=== PATIENT | male | born 1940 | race Caucasian/White ===

== ENCOUNTER 2017-01-06 19:51 | Inpatient (IN) | payer OTHER ==
[~2017-01-06] VITALS: Ht 167.6 cm; Wt 89.4 kg
--- NOTE | ~2017-01-06 | D ---
[facility] [place] [address] DISCHARGE SUMMARY Name: KRISTIE CARDOZA Room #: 305-P [facility] IN M.R.#: [id number] Admission: 01/06/17 Attend Phys: Vania Campos MD Discharge: 01/08/17 Date of : 42 Report #: [id number] THIS REPORT FOR: //name// CC: OWEN Campos DATE OF SERVICE: 01/08/2017 PRIMARY DOCTOR: Owen Garber MD DISCHARGE DIAGNOSES: 1. Elevated troponin. 2. Type 2 diabetes, uncontrolled. 3. Abdominal pain secondary to constipation. 4. Chronic diastolic congestive heart failure. 5. Hypertension. 6. Acute kidney injury. 7. History of atrial fibrillation, on chronic anticoagulation. 8. Obstructive sleep apnea, on CPAP. 9. Chronic obstructive pulmonary disease. 10. Hypothyroidism. 11. History of deep venous thrombosis with inferior vena cava filter. 12. Coronary artery disease with prior stents. 13. Permanent pacemaker. 14. Dyslipidemia. CONSULTS: Cardiology, Dr. Seo. Wound care and endocrinology, Dr. Fagan. PROCEDURES: He had a stress test that was negative for ischemia. HOSPITAL COURSE: The patient is a 76-year-old male with multiple medical problems including diabetes, coronary artery disease, atrial fibrillation, hypertension, currently residing at an assisted living facility, presented to the ER secondary to abdominal pain. Please see details of admission dictated by on 01/06/2017. Workup in the ER revealed the patient had low sodium and elevated troponin. He was admitted and cardiac workup was initiated. He indicates that his abdominal pain is unrelated to his diabetes and his sugars were markedly elevated in the ER. Additionally, he had evidence of some volume depletion as his sodium was low and his BUN and creatinine were elevated. He was started on some normal saline and cardiology was consulted. He underwent a stress test that was negative for ischemia. He was cleared for discharge by cardiology. Subsequent to that, his abdominal symptoms have resolved as well. He denied any complaints and was anxious to go home. DISCHARGE DISPOSITION: To home with home health. [address] [address] DISCHARGE SUMMARY Name: KRISTIE CARDOZA Room #: 305-P [facility] IN M.R.#: [id number] Admission: 01/06/17 Attend Phys: Vania Campos MD Discharge: 01/08/17 Date of : 42 Report #: [id number] DISCHARGE PHYSICAL EXAMINATION: VITAL SIGNS: Temperature 98, pulse 80, blood pressure 136/78, O2 sat is 96% on room air. GENERAL: He is awake, alert, answering questions appropriately, in no acute respiratory distress. HEENT: Normocephalic, atraumatic. NECK: Supple. CARDIOVASCULAR: Regular rate and rhythm. No murmurs. LUNGS: Clear to auscultation bilaterally. No crackles or wheeze. ABDOMEN: Soft, no distention or tenderness. EXTREMITIES: No edema. DISCHARGE MEDICATIONS: Aspirin 81 daily, Casodex 50 daily, vitamin D 50,000 units weekly, Lasix 40 daily, Proscar 2.5 mg daily, Neurontin 600 t.i.d., glucosamine 500 t.i.d., guaifenesin 600 daily, Toujeo 15 units at bedtime and 5 units a.c., Imdur 30 mg daily, Synthroid 100 mcg daily, Namenda 10 daily, metoprolol XL 50 daily, multivitamin daily, nitroglycerin p.r.n., OxyIR p.r.n., Pentoxifylline 400 t.i.d., Klor-Con 10 mEq daily, Crestor 20 daily, Hytrin 5 daily, Coumadin at bedtime. DIET: Diabetic and cardiac diet. ACTIVITY: As tolerated. FOLLOWUP: With primary care in 1 week. Follow up with cardiology as instructed. Follow up with wound care as instructed. Follow up endocrinology, Dr. Fagan in 1-2 weeks and to seek immediate medical attention if symptoms worsen or recur or if he has any significant medical concerns. Discharge plan took 40 minutes. By: [id number] Vania Campos MD /luisito
--- NOTE | ~2017-01-06 | EKG ---
[place] [address] [facility] [place] [address] ELECTROCARDIOGRAM REPORT Name: KRISTIE CARDOZA Room #: 305-P ADM IN M.R.#: [id number] Admission: 01/06/17 Attend Phys: Vania Campos MD Discharge: Date of : 42 Report #: [id number] THIS REPORT FOR: //name// [facility] ED Test Date: 2017-01-06 Test Time: 21:40:06 Pat Name: KRISTIE CARDOZA Department: Room: [facility] Gender: M Annual Giving Manager: MZOOK : 1940 Requested By: Karl Stroud Order Number: [id number] MD: Nick Davenport Measurements Intervals [place] Rate: 79 P: 0 IL: 62 QRS: -42 QRSD: 175 T: 134 QT: 451 QTc: 518 Interpretive Statements Ventricular-paced rhythm No further analysis attempted due to paced rhythm Compared to ECG 09/08/2016 06:50:55 ventricular pacing now present Electronically Signed On 01-07-2017 8:59:27 CDT by Nick Davenport [email or web address] <ELECTRONICALLY SIGNED> By: Nick Davenport MD, [facility] 01/07/17 [phone] 39 Nick Davenport MD, [facility] /EPI
--- NOTE | ~2017-01-06 | HC ---
[facility] [place] [address] CONSULTATION Name: KRISTIE CARDOZA Room #: 305-P ADM IN M.R.#: [id number] Admission: 01/06/17 Attend Phys: Vania Campos MD Discharge: Date of : 41 Report #: [id number] THIS REPORT FOR: //name// CC: Raul Campos DATE OF SERVICE: 01/07/2017 Cardiology Consultation PRIMARY CARE PHYSICIAN: Raul Garber M.D. HISTORY OF PRESENT ILLNESS: The patient is a 76-year-old single white male who I was asked to see in the hospital today after he complained of epigastric discomfort. The patient has had a long history of coronary artery stenting mainly in the circumflex artery. His first stent was approximately 15 years ago at [facility]. His last stent was several years ago. He actually had repeat heart catheterization in 2014 that showed an ejection fraction of ____. The stent in the LAD and circumflex had no restenosis. The distal posterior descending branch did have a 70% stenosis. It is recommended he be treated medically. He has a long history of paroxysmal atrial fibrillation, but apparently never required cardioversion. The patient presented here to [facility] last August with atrial flutter with a rapid ventricular response rate. He was placed on diltiazem and converted to sinus rhythm, but had pauses of over 3 seconds with sinus bradycardia. I then implanted a permanent dual chamber pacemaker in August. He had recurrent atrial fibrillation and was cardioverted in September. He had recurrent atrial fibrillation ____ for rate control. He was started on diltiazem. He actually just saw my nurse practitioner 2 weeks ago in the cardiology clinic in [facility]. At that time, he was in atrial flutter with a rapid response. He has been chronically anticoagulated. At that time, he was started on digoxin in addition to the diltiazem. The patient was scheduled to see Dr. Fontana next month. The patient states he has been doing well until yesterday at his home, felt some epigastric fullness and nausea. His blood sugar is elevated. He called an ambulance and was brought here to [facility]. He had had no vomiting. He has had no diarrhea or bleeding. Denied any fever. Denied any chest pain, shortness of breath, palpitations, lightheadedness or edema. PAST MEDICAL HISTORY: Otherwise, significant for multiple myeloma diagnosed in 2007, he is followed at and received chemotherapy in the past, he is now in remission. 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 He has had a tonsillectomy. He has prostatism, neuropathy, hyperlipidemia and diabetes. [facility] [address] [place] [address] CONSULTATION Name: SONYKRISTIE Room #: 305-P [facility] IN M.R.#: [id number] Admission: 01/06/17 Attend Phys: Vania Campos MD Discharge: Date of : 41 Report #: [id number] CURRENT MEDICATIONS: Consists of amiodarone, I believe he is now on 200 mg twice a day; aspirin 81 mg a day; digoxin 0.25 mg a day; Proscar 5 mg a day; Lasix 40 mg a day; Neurontin; his insulin therapy; Imdur; Synthroid; Namenda; metformin; metoprolol; metolazone as needed. ALLERGIES: HE HAS INTOLERANCE TO MORPHINE. FAMILY HISTORY: His father had an aneurysm. 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 His 2 years ago with multiple myeloma. He quit smoking years ago, rarely drinks alcohol. REVIEW OF SYSTEMS: He has had no history of stroke, asthma. He does have sleep apnea and uses CPAP. No history of peptic ulcer disease, liver disease, chronic skin condition, psychiatric illness. PHYSICAL EXAMINATION: GENERAL: Elderly male lying in bed. He appeared in no distress. VITAL SIGNS: He had a blood pressure 130/60, pulse is 80 and he was afebrile. HEENT: He is anicteric. Conjunctivae are pink. Mucous membranes are moist. NECK: Veins nondistended. No carotid bruits. CHEST: Clear to auscultation. CARDIOVASCULAR: Regular rate and rhythm. ABDOMEN: Soft. EXTREMITIES: Had no edema. Posterior tibial pulse 1+ bilaterally. SKIN: Cool and dry. NEUROLOGIC: Nonfocal. RADIOLOGICAL DATA: His ECG on admission yesterday showed ventricular paced rhythm. The underlying rhythm actually appeared to represent atrial fibrillation. On his workup, he had a KUB in the emergency room last night that showed nonspecific gas pattern. LABORATORY DATA: Sodium 127, BUN 30, creatinine 1.7. Glucose is 471, SGOT 39, lipase 193, bilirubin 0.4, SGPT 62. His troponin was 0.12 ____. His cholesterol is 248, triglyceride 274, HDL 34 and LDL 160. INR was 3.0. White blood cell count 8.1, hemoglobin 14.2. IMPRESSION AND RECOMMENDATIONS: 1. Epigastric fullness: No evidence of acute abdomen. No evidence of pancreatitis. 2. Atrial fibrillation: Rate controlled with a calcium maik and digoxin. The patient has been anticoagulated. 3. Sick sinus syndrome: The patient ventricular paced. 4. Coronary artery disease: Borderline troponin. Recommend nuclear stress [address] [address] CONSULTATION Name: KRISTIE CARDOZA Room #: 305-P ADM IN M.R.#: [id number] Admission: 01/06/17 Attend Phys: Vania Campos MD Discharge: Date of : 41 Report #: [id number] test. 5. Hyperlipidemia: The patient has been on a statin drug. 6. Multiple myeloma: The patient followed at . 7. Diabetes: Does not appear controlled at this time. 8. History of deep venous thrombosis: The patient has been anticoagulated. <ELECTRONICALLY SIGNED> By: Roverto Seo MD, FACC 01/08/17 1648 [id number] [id number] Roverto Seo MD, FACC /nt
--- NOTE | ~2017-01-06 | CARDNUC ---
[facility] [place] [address] CARDIAC NUCLEAR IMAGING REPORT Name: KRISTIE CARDOZA Room #: 305-P [facility] IN .R.#: [id number] Admission: 01/06/17 Attend Phys: Vania Campos MD Discharge: Date of : 42 Date of Service: 01/07/17 1617 Report #: [id number] THIS REPORT FOR: //name// CC: Raul Campos DATE OF SERVICE: 01/07/2017 This is a Lexiscan Cardiolite stress test. Vasodilator Gated SPECT Myocardial Perfusion Imaging: Regadenoson Primary care doctor: Vania Campos MD Referring trolley wire installer: Roverto Seo MD [facility] and Leeroy Fontana MD [facility] Date of study: 12/2016. Indications for study: Abnormal EKG. Risk factors: Age, hyperlipidemia, hypertension, diabetes, tobacco use, and COPD. Cardiac history: Known coronary artery disease status post PCI. Cardiac medications: Digoxin, aspirin, levothyroxine, metoprolol, and isosorbide. Gender: Male. PROCEDURE: The patient was given 0.4 mg of intravenous regadenoson (Lexiscan) administered over approximately 20 seconds. The patient did not complain of chest discomfort during the infusion. In response to complaints of chest discomfort the patient was not given intravenous aminophylline. At baseline the BP was 142/71 and the HR was 79; at completion of the regadenoson infusion the BP was 104/51 and the HR was 94. At completion of the recovery phase the BP was 139/67 and the HR was 79. The baseline EKG demonstrated normal sinus rhythm with left bundle-branch block. The EKG at completion of the administration of regadenoson demonstrated no significant change in EKG during or after regadenoson administration. There was no significant ST-segment depression during or after regadenoson administration. Rhythm disturbances included none. Gated-SPECT myocardial perfusion imaging was performed using a 1-day imaging protocol and a single-isotope technique. The 11.4 mCi of Tc-99m sestamibi was administered intravenously at rest; 31.9 mCi of Tc-99m sestamibi was administered intravenously within 10 seconds of the completion of the administration of regadenoson. Imaging was obtained in the supine position and when feasible, adjunctive stress imaging in the prone position was obtained. [address] [address] CARDIAC NUCLEAR IMAGING REPORT Name: KRISTIE CARDOZA Room #: 305-P [facility] IN .R.#: [id number] Admission: 01/06/17 Attend Phys: Vania Campos MD Discharge: Date of : 42 Date of Service: 01/07/17 1617 Report #: [id number] FINDINGS: The overall quality of the study was adequate. There was a little evidence of attenuation artifact. There was no evidence of abnormal extracardiac uptake of the radionuclide. The baseline imaging study demonstrated a very small, very mild apical defect and a small mild inferior defect. The imaging obtained following the administration of the vasodilator also demonstrated a very small, very mild apical defect and a small mild inferior defect, unchanged from that seen at rest. There were no reversible defects seen. There was no evidence of myocardial ischemia. On gated analysis the left ventricle demonstrated overall normal contractility; however, there was septal hypokinesis consistent with left bundle-branch block present. The gated ejection fraction was 55%. The left ventricle was of normal size at rest and did not dilate significantly with administration of the vasodilator. The TID was 1.06. IMPRESSIONS: CLINICAL RESPONSE: Nonischemic. STRESS EKG RESPONSE: Nondiagnostic due to heart rate that was inadequate to exclude ischemia and due to the presence of left bundle-branch block. MYOCARDIAL PERFUSION STUDY: Nonischemic. FUNCTIONAL CAPACITY: Not assessed. CONCLUSIONS: The Lexiscan Cardiolite stress test demonstrates low probability for myocardial ischemia. Overall, this is a low risk Lexiscan Cardiolite stress test. The fixed defects seen with stress and at rest likely represent diaphragmatic attenuation artifact. Overall, this is a low-risk study. <ELECTRONICALLY SIGNED> By: Adrienne Aburto MD, FACC 01/08/17 1302 1617 1637 Adrienne Aburto MD, FACC /nt
[~2017-01-06 19:51] MED LIST: ACYCLOVIR 400400 MG; ACYCLOVIR 400400 MG PO; ALDARA1 EACH TP; ASPIRIN EC81 M1; ATIVAN0.5 MG PO; CHEMO MED; COMPAZINE10 MG PO; COUMADIN 4 MG TA4 M1 PO; COUMADIN 5 MG TA5 M1 PO; CRESTOR20 MG PO; DEXPAK1.5 M1 PO; FINASTERIDE; FLOMAX PO; GLYBURIDE 3 MG M3 M1; GLYCOLAX255 GM PO; HYTRIN 2MG CAPSU2 MG PO; HYTRIN 5 M5 MG/1 CAP PO; IMDUR 30 MG TAB30 M1; LASIX 40 MG TAB40 M2 PO; LEVOTHYROXIN0.112 M1 PO; LIDODERM TP; LISINOPRIL10 MG PO; METFORMIN HCL500 MG PO; MIRALAX17 GM PO; MIRALAX255 GM PO; MUCINEX600 MG PO; NEURONTIN600 MG PO; NITROGLYCERIN0.4 MG SUBLING; NIZORAL120 ML TP; ONDANSETRON HCL4 M2 PO; OXYCONTIN10 M1 PO; PACERONE 200 M200 M1 PO; PAIN & FEVER500 MG PO; PLAVIX 75 MG TA75 MG; POMALYST1 MG PO; POMALYST2 MG PO; POMALYST4 MG PO; PREDNISONE 10 M10 MG; PROSCAR 5MG TABL5 M1 PO; ROBITUSSIN DM118 ML PO; ROXICODONE5 M2 PO; TRIAMCINOLONE A80 GM TOP; VITAMIN D 5050000 I1 PO; VITAMIN D22000 UNIT PO; ZOFRAN ODT4 MG DISSOLVE; ZOMETA4 MG/5 ML IV; ZYRTEC10 M4 PO; ZYRTEC10 MG PO; [UNRECOGNIZED DRUG - REMARK]
[2017-01-06 19:58] VITALS: BP 113/63
[2017-01-06] MEDS ORDERED: IMDUR 30 MG TAB30 M1 PO (21:02)
[2017-01-06] MEDS ORDERED: SIMVASTATIN20 MG PO (21:03)
[2017-01-06] MEDS ORDERED: TOPROL XL25 MG PO (21:03)
[2017-01-06] MEDS ORDERED: UNICOMPLEX M TA1 TA1 PO (21:04)
[2017-01-06] MEDS ORDERED: PENTOXIFYLLINE400 MG PO (21:06)
[2017-01-06] MEDS ORDERED: KLOR-CON 1010 MEQ PO (21:07)
[2017-01-06] MEDS ORDERED: NAMENDA 10 MG T10 MG PO (21:07)
[2017-01-06] MEDS ORDERED: CASODEX 50 MG T50 M1 PO (21:08)
[2017-01-06] MEDS ORDERED: GLUCOSAMINE HC500 MG PO (21:08)
[2017-01-06] MEDS ORDERED: BACTRIM DS TAB1 EACH PO (21:10)
[2017-01-06] MEDS ORDERED: METOLAZONE 2.52.5 M1 PO (21:11)
[2017-01-06] MEDS ORDERED: CARDIZEM CD180 MG PO (21:11)
[2017-01-06] MEDS ORDERED: DIGOXIN250 MCG PO (21:12)
[2017-01-06] MEDS ORDERED: OXYCODONE HCL 55 MG PO (21:13)
[2017-01-06] MEDS ORDERED: LYRICA 50 MG50 MG PO (21:15)
[2017-01-06] MEDS ORDERED: LEVOTHYROXINE 0.1 MG PO (21:18)
[2017-01-06] MEDS ORDERED: TOUJEO SOL300 UNIT/1 SQ (21:21)
[2017-01-06] MEDS ORDERED: FREESTYLE LITE1 EACH MC (21:22)
[2017-01-06 21:24] LABS: HEMATOCRIT 42.5 % (42.0-52.0); HEMOGLOBIN 14.2 gm/dL (14.0-18.0); MANUAL DIFF YES; MCH 32.8 pg (26.0-34.0); MCHC 33.4 g/dL (28.0-37.0); MCV 98.4 fL (80.0-100.0); PLATELET COUNT 183 thou/uL (150-400); RBC 4.32 mil/uL (4.50-6.00); RDW 16.1 % (10.5-14.5); WBC 8.1 thou/uL (4.0-11.0)
[2017-01-06 21:28] LABS: CALCIUM 9.6 mg/dL (8.5-10.1); CREATININE 1.7 mg/dL (0.7-1.3); POTASSIUM 4.1 mmol/L (3.5-5.1)
[2017-01-06 21:35] LABS: ALBUMIN 3.7 g/dL (3.4-5.0); TOTAL BILIRUBIN 0.4 mg/dL (<0.1-1.0); TOTAL PROTEIN 7.7 g/dL (6.4-8.2); TROPONIN-I 0.12 ng/mL (<0.04-0.07)
[2017-01-06 21:47] LABS: TOTAL CELL COUNT 100
[2017-01-06 21:48] LABS: ANISOCYTOSIS 1+; MICROCYTES SLIGHT; POLYCHROMASIA SLIGHT
[2017-01-06 23:05] LABS: URINE BILIRUBIN NEGATIVE (Negative); URINE BLOOD NEGATIVE (Negative); URINE COLOR YELLOW; URINE GLUCOSE-RANDOM* 3+ (Negative); URINE KETONES NEGATIVE (Negative); URINE LEUKOCYTES-REFLEX NEGATIVE (Negative); URINE PROTEIN (DIPSTICK) NEGATIVE (Negative); URINE UROBILINOGEN 0.2 E.U./dl (0.2-1.0)
[2017-01-07] VITALS (7 sets, daily range): BP systolic 104–147; BP diastolic 57–87
[2017-01-07] MEDS ORDERED: PROSCAR 5MG TABL5 MG PO (02:44)
[2017-01-07 04:08] LABS: CHOLESTEROL 248 mg/dL (<200); HDL CHOLESTEROL 34 mg/dL (>40); LDL CHOLESTEROL 160 mg/dL (<100); TC:HDL 7.3 Ratio (Not establshd); TRIGLYCERIDE 274 mg/dL (<150); VLDL 55 mg/dL (<40)
[2017-01-07 04:09] LABS: SERUM ASSESSMENT Clear
[2017-01-07 04:18] LABS: PROTIME 31.3 Seconds (9.3-11.4)
[2017-01-07 10:34] LABS: CALCIUM 8.6 mg/dL (8.5-10.1); CREATININE 1.2 mg/dL (0.7-1.3)
[2017-01-08] VITALS (8 sets, daily range): BP systolic 118–136; BP diastolic 65–78
[2017-01-08 02:10] LABS: GLYCOHEMOGLOBIN (HGB A1C) 10.3 % (4.8-5.6)
[2017-01-08 05:56] LABS: HEMATOCRIT 36.7 % (42.0-52.0); MCH 32.6 pg (26.0-34.0); MCHC 33.3 g/dL (28.0-37.0); MCV 98.1 fL (80.0-100.0); RBC 3.74 mil/uL (4.50-6.00); RDW 15.7 % (10.5-14.5); WBC 6.2 thou/uL (4.0-11.0)
[2017-01-08 06:02] LABS: INR 2.2; PROTIME 22.7 Seconds (9.3-11.4)
[2017-01-08 06:06] LABS: HEMOGLOBIN 12.2 gm/dL (14.0-18.0)
[2017-01-08 06:31] LABS: CALCIUM 8.9 mg/dL (8.5-10.1); POTASSIUM 3.2 mmol/L (3.5-5.1)
[2017-01-08 06:42] LABS: DIGOXIN 3.4 ng/mL (0.9-2.0)
[2017-01-08] MEDS ORDERED: HUMALOG100 UNIT/1 SUBQ (14:21)
[2017-01-08] MEDS ORDERED: TOUJEO SOL300 UNIT/1 SQ (14:21)
[2017-01-08] MEDS ORDERED: METOPROLOL SUCC50 MG PO (15:23)
== END 2017-01-08 17:54 | disposition home health service (06) | DRG 637 ==
LOC: ER 19:51 → 3N 23:41 → EROBS 23:41 → 3N 01-07 00:35
PROVIDERS: Emergency Medicine; Family Medicine; Internal Medicine Cardiovascular Disease; Nurse Practitioner
DX: E11.65 Type 2 diabetes mellitus with hyperglycemia (principal); N17.0 Acute kidney failure with tubular necrosis; E87.1 Hypo-osmolality and hyponatremia; C90.00 Multiple myeloma not having achieved remission; I50.9 Heart failure, unspecified; I11.0 Hypertensive heart disease with heart failure; E78.5 Hyperlipidemia, unspecified; I25.10 Atherosclerotic heart disease of native coronary artery without angina pectoris; I48.91 Unspecified atrial fibrillation; J44.9 Chronic obstructive pulmonary disease, unspecified; G47.33 Obstructive sleep apnea (adult) (pediatric); K59.00 Constipation, unspecified; E87.8 Other disorders of electrolyte and fluid balance, not elsewhere classified; I49.5 Sick sinus syndrome; E03.9 Hypothyroidism, unspecified; E66.9 Obesity, unspecified; E11.42 Type 2 diabetes mellitus with diabetic polyneuropathy; S90.822A Blister (nonthermal), left foot, initial encounter; S90.821A Blister (nonthermal), right foot, initial encounter; X58.XXXA Exposure to other specified factors, initial encounter; Z88.6 Allergy status to analgesic agent; Z95.5 Presence of coronary angioplasty implant and graft; Z84.89 Family history of other specified conditions; Z79.01 Long term (current) use of anticoagulants; Z95.0 Presence of cardiac pacemaker; Z86.718 Personal history of other venous thrombosis and embolism; Z90.49 Acquired absence of other specified parts of digestive tract; Z68.31 Body mass index [BMI] 31.0-31.9, adult; Z88.8 Allergy status to other drugs, medicaments and biological substances; Z87.891 Personal history of nicotine dependence; Y93.89 Activity, other specified; Y92.89 Other specified places as the place of occurrence of the external cause; Y99.8 Other external cause status
CPT/HCPCS: 10096

== ENCOUNTER 2017-05-10 11:15 | Inpatient (IN) | payer OTHER ==
[~2017-05-10] VITALS: Ht 167.6 cm; Wt 93.0 kg
[2017-05-10] VITALS (18 sets, daily range): BP systolic 78–142; BP diastolic 46–82
--- NOTE | ~2017-05-10 | HC ---
[facility] [place] [address] CONSULTATION Name: KRISTIE CARDOZA Room #: 461-P [facility] IN ..#: [id number] Admission: 05/10/17 Attend Phys: Faustino Reyes MD Discharge: Date of : 41 Report #: [id number] THIS REPORT FOR: //name// CC: Raul Reyes DATE OF SERVICE: 05/19/2017 HISTORY OF PRESENT ILLNESS: The patient is a 76-year-old white male with the history of multiple myeloma, COPD, diabetes mellitus, hypertension, chronic atrial fibrillation, coronary artery disease, and prior permanent pacemaker, who was admitted with worsening oxygen and decreased blood pressure. He was noted to be in septic shock with pneumonia and in immunocompromised state. He had acute hypoxic respiratory failure secondary to ARDS. He was seen by Hematology. He was noted to have pancytopenia secondary to his prior chemotherapy as well as infection. He was premorbidly on Coumadin and recommended prophylaxis until INR is therapeutic. He continues on high dose oxygen and has been on 10 liters, although this has been decreased down to 88 liters. He has medical complexity with generalized debilitation. We are seeing him in rehabilitation medicine consultation. PAST MEDICAL HISTORY: Includes hypertension, hyperlipidemia, multiple myeloma, diabetes mellitus type 2, coronary artery disease, status post 5 stents in 2006. He has had back surgery, IVC filter for DVT on 08/26, left lower extremity. He notes that left leg has always been somewhat weak, history of atrial fibrillation, COPD. MEDICATIONS: Please see the full medication listing. HABITS: Former smoker, quit greater than 1 year ago. Alcohol use: On special occasions. FAMILY HISTORY: No pertinent family history. SOCIAL HISTORY: Lives in an assisted living facility. He lives alone in assisted living apartment, was ambulatory without gait aids, short distances, but when he was out in the community, he would use a front-wheeled walker. He was not on O2 premorbidly. Notes that he has children in the area. REVIEW OF SYSTEMS: No current complaints of chest pain at rest or shortness of breath, no abdominal discomfort. Again, he notes that the left leg has been chronically weak and he attributes to the prior history of the blood clot. He nevertheless was able to ambulate with that left leg, did not offer any focal extremity pain complaints at this time. PHYSICAL EXAMINATION: [facility] [address] [place] [address] CONSULTATION Name: KRISTIE CARDOZA Room #: 461-P [facility] IN ..#: [id number] Admission: 05/10/17 Attend Phys: Faustino eRyes MD Discharge: Date of : 41 Report #: [id number] GENERAL: He is a 76-year-old overweight, pleasant white male in no obvious distress. He is alert, oriented. VITAL SIGNS: Last recorded temperature 98.3, pulse 77, respirations 20, blood pressure 112/59. HEENT: Facies appeared symmetric. Appeared grossly benign. He is on nasal prong O2, currently turned down to 6 liters at rest. He has significant exogenous obesity. EXTREMITIES: Functional range of motion of the upper extremities. Strength is grade 4 to 4-/5. DTRs are trace to 1. In his lower extremities, he move that right lower extremity quite well with strength grade 4 to 4-/5. DTRs are trace to 1. Left lower extremity is probably more 3+ to 4-/5. DTRs are 1 to trace. Functionally, he is at a lower level with sit to stand, max assist x 2. ASSESSMENT: A 76-year-old white male with the following problems: 1. Medical complexity with generalized debilitation. 2. Acute hypoxic respiratory failure. 3. Sepsis. 4. Acute respiratory distress syndrome. 5. Pneumonia. 6. Immunocompromised state. 7. Multiple myeloma. 8. Pancytopenia with hematology involved. 9. Diabetes mellitus type 2. 10. Anticoagulation. PLAN: He is currently on significant O2, has been 10 liters, although decreased down to 6 liters currently. He is at a lower functional level needing max assist x 2 for sit to stand. I am uncertain if he has the tolerance for an acute 5 North inpatient rehabilitation stay. At this point, we will follow along with you. Note that LTAC stay is also being considered. Again, we will follow along with you. By: [id number] Roverto Cordoba MD /
--- NOTE | ~2017-05-10 | HC ---
[facility] [place] [address] CONSULTATION Name: KRISTIE CARDOZA Room #: 246-P [facility] IN M.R.#: [id number] Admission: 05/10/17 Attend Phys: Faustino Reyes MD Discharge: Date of : 41 Report #: [id number] THIS REPORT FOR: //name// CC: Raul Reyes TYPE OF REPORT: Infectious diseases consultation. REASON FOR CONSULTATION: I was asked to evaluate the patient concerning bilateral pulmonary infiltrates in the setting of multiple myeloma and coronary artery disease. HISTORY OF PRESENT ILLNESS: The patient was seen in the intensive care unit after being admitted through the emergency room with progressive shortness of breath. He has had mild intermittent nonproductive cough. No nausea, vomiting or diarrhea. He remains on treatment for has multiple myeloma including Casodex. He lives in an assisted living facility noted that his oxygen saturation was in the 50s, therefore transferred to the emergency room. There he was hypotensive. He was found also to be nemic and leukopenic. Hospitalized in the intensive care unit, given IV fluids and low-dose pressors. No recent history of antibiotic use. No recent pneumonia. His last hospitalization was in December of this past year. He has had no travel. No exposure to ill persons. REVIEW OF SYSTEMS: Denies any rash, arthritis, chest pain, pre-syncopal episodes, dysuria or frequency. He does have some orthopnea. He has underlying history of atrial fibrillation and rapid ventricular response and sick sinus syndrome along with his coronary artery disease. ALLERGIES: BETA BLOCKERS, MORPHINE and DEMEROL. MEDICATIONS: As noted on his NOV. Received vancomycin, Levaquin and Zosyn in the emergency room. PAST MEDICAL HISTORY: Hypertension, hyperlipidemia, multiple myeloma, diabetes, coronary artery disease, nasal surgery, back surgery, IVC filter for DVT, AFib, obstructive sleep apnea and COPD. FAMILY HISTORY: Noncontributory. SOCIAL HISTORY: He is a past smoker, minimal alcohol intake. 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 PHYSICAL EXAMINATION: VITAL SIGNS: Temperature is 95 degrees, pulse 86, respirations 26, he was on high-flow oxygen and blood pressure 109/66 with a MAP of 74. [address] [address] CONSULTATION Name: KRISTIE CARDOZA Room #: 246-P [facility] IN ..#: [id number] Admission: 05/10/17 Attend Phys: Faustino Reyes MD Discharge: Date of : 41 Report #: [id number] GENERAL: He was alert and cooperative. He was dyspneic. He was a poor historian but did know his surroundings. HEENT: Unremarkable. NECK: Supple. LUNGS: Crackles heard posteriorly with no consolidation or rub. HEART: Regular without appreciable murmur, gallop or rub. ABDOMEN: Mildly protuberant, was nontender. No hepatosplenomegaly or mass. GENITOURINARY: External genitalia unremarkable with indwelling Dougherty catheter. EXTREMITIES: With 2+ peripheral edema in the lower extremities. LABORATORY STUDIES: Sodium 139, potassium 4.3, bicarbonate of 23 and creatinine 1. Liver function tests normal. Lactate 1.6. Hemoglobin 9.6; platelet count 118,000 and WBC 1.7 with an 87% neutrophils. Urinalysis unremarkable. Blood culture pending. Sputum culture not obtained yet. CT scan of the chest showed bilateral interstitial infiltrates. IMPRESSION: A 76-year old immunosuppressed, on chemotherapy for relapsing multiple myeloma, presents now with bilateral interstitial infiltrates along with neutropenia. Etiology would include viral and bacterial, both typical and atypical, most likely. Congestive heart failure also considered as an additional finding. No evidence of pulmonary embolism on CT scan. I doubt drug side effect. The patient has septic shock, now receiving IV fluids and vasopressors. He has some mild confusion contributing. RECOMMENDATION: Continue with broad antibiotic coverage. We will screen for viruses, atypical bacteria. Check BNP, echocardiogram and full support. I have discussed with the nursing staff. If no improvement, we will likely need more intensive oxygen supplementation. It is apparent that the patient is a do not resuscitate, therefore could potentially limit possibility of bronchoscopy if he does not show improvement. We will need to discuss this further with pulmonary medicine if we get to that point. <ELECTRONICALLY SIGNED> By: Karl Eldridge MD 05/12/17 0843 1857 19 Karl Eldridge MD /nt
--- NOTE | ~2017-05-10 | HC ---
[facility] [place] [address] CONSULTATION Name: KRISTIE CARDOZA Room #: 246-P [facility] IN .R.#: [id number] Admission: 05/10/17 Attend Phys: Faustino Reyes MD Discharge: Date of : 42 Report #: [id number] THIS REPORT FOR: //name// CC: Raul Reyes REFERRAL PHYSICIAN: Dr. Reyes. REASON FOR REFERRAL: Hypoxia and pneumonia. HISTORY OF PRESENT ILLNESS: The patient is a 76-year-old white male with history of multiple myeloma, presents at Emergency Room with not feeling well and progressive dyspnea. Chest x-ray on admission revealed bilateral infiltrates. A pulmonary consultation was requested. The patient resides at an assisted living at [facility]. He was in her usual state of health until recently when he started to not feel well. When he was seen in the Emergency Room, the patient was found to be hypoxic with saturation in the 50%. Chest x-ray as mentioned above. Currently, he states that he feels comfortable. He is on high flow O2. He denies any recent chest pain, hemoptysis, nausea, vomiting, diarrhea. PAST MEDICAL HISTORY: Remarkable for multiple myeloma diagnosed in 2013, had been undergoing chemotherapy, was told that he was in remission; hypertension; hyperlipidemia; history of tobacco use, quit in 1971; diabetes mellitus type 2; coronary artery disease with prior stent placement; history of DVT status post IVC filter placement in 2006; atrial fibrillation; history of BRIGIDA, on CPAP; history of COPD, though the patient denies. PAST SURGICAL HISTORY: As mentioned above including prior nasal surgery, prior back surgery. ALLERGIES: BETA BLOCKERS; MORPHINE, which causes severe vomiting; DEMEROL, reactions not specified. HOME MEDICATIONS: List reviewed, is in MAR. FAMILY HISTORY: Noncontributory. SOCIAL HISTORY: The patient has smoked, but quit in 1970s. Drinks occasional alcohol. MEDICAL DIRECTIVE: He is a DNR per family. REVIEW OF SYSTEMS: As mentioned above, otherwise 10-point system review [facility] [address] [place] [address] CONSULTATION Name: KRISTIE CARDOZA Room #: [address] [place] [address] [place] [facility].#: [id number] Admission: 05/10/17 Attend Phys: Faustino Reyes MD Discharge: Date of : 42 Report #: [id number]. PHYSICAL EXAMINATION: GENERAL: He is awake, alert, in mild distress. VITAL SIGNS: Temperature is 97.3 degrees Fahrenheit, pulse is 90, respiratory rate is 24, blood pressure is 118/82 mmHg and saturation is 96%. HEENT: Normocephalic, atraumatic. NECK: Supple, without lymphadenopathy or thyromegaly. CHEST: Breath sounds are fair with bilateral crackles. No wheezes. CARDIOVASCULAR: Normal S1, S2. There are no murmurs or gallop. There is no JVD. There is no carotid bruit. Pulses are 2+/4+ bilaterally. ABDOMEN: Soft, nontender, no organomegaly or masses felt. GENITOURINARY AND RECTAL: Deferred. EXTREMITIES: There is no edema, cyanosis or clubbing. LABORATORY DATA: Portable chest x-ray and CT chest were reviewed showing extensive bilateral infiltrates. Moderate bilateral pleural effusion is seen. ____ pulmonary embolus. EKG shows atrial ____ flutter with rapid ventricular response. Procalcitonin level is 0.05. BNP is 1873. Sodium 139, potassium 4.3, chloride 106, CO2 is 23, BUN is 19, creatinine is 1.0. Liver function profile is unremarkable. WBC 1700, hemoglobin 9.6, platelets are mildly decreased at 118,000, there are 7% bands. INR is 2.8. Arterial blood gas revealed pH 7.39, pCO2 32, pO2 is 75. IMPRESSION: 1. Progressive dyspnea in the 76-year-old white male with multiple myeloma. Chest x-ray shows bilateral infiltrates. He is neutropenic. Extensive bilateral pneumonia suspected in this immunocompromised patient. Heart failure is felt to be less likely. 2. Remote history of tobacco use along with history of chronic obstructive pulmonary disease. Although the patient denies history of chronic obstructive pulmonary disease, we will treat for presumed lung disease with bronchodilators and corticosteroids. 3. Multiple myeloma, neutropenia, mild thrombocytopenia. 4. History of deep venous thrombosis status post inferior vena cava filter placement, on anticoagulation. 5. Severe protein calorie malnutrition, albumin 2.0. 6. Severe sepsis with shock with multisystem organ failure as mentioned above. 7. Permanent atrial fibrillation, rate controlled on anticoagulation. 8. Coronary artery disease, chronic diastolic heart failure. 9. Hypertension. 10. Hypothyroidism. RECOMMENDATION: Agree with broad spectrum antibiotics. We will continue O2 supplementation ____ saturation greater than 90%. We will try noninvasive positive pressure ventilation as needed. We will await culture results. [facility] [address] [place] [address] CONSULTATION Name: KRISTIE CARDOZA Room #: 246-P [facility] IN M.R.#: [id number] Admission: 05/10/17 Attend Phys: Faustino Reyes MD Discharge: Date of : 42 Report #: [id number] Bronchodilators and corticosteroids as mentioned above. Thank you for this consultation. <ELECTRONICALLY SIGNED> By: Osbaldo Liriano MD 05/17/17 1240 1005 1207 Osbaldo Liriano MD /nt
--- NOTE | ~2017-05-10 | EKG ---
[place] [address] [place] [facility] [place] [address] ELECTROCARDIOGRAM REPORT Name: KRISTIE CARDOZA Room #: 246-P ADM IN M.R.#: [id number] Admission: 05/10/17 Attend Phys: Faustino Reyes MD Discharge: Date of : 42 Report #: [id number] THIS REPORT FOR: //name// [facility] ED Test Date: 2017-05-10 Test Time: 11:51:09 Pat Name: KRISTIE CARDOZA Department: Room: Gender: M Supervisor Ditching: REG : 1940 Requested By: Order Number: [id number] MD: Nick Davenport Measurements Intervals [place] Rate: 120 P: HI: QRS: 1 QRSD: 95 T: 16 QT: 402 QTc: 569 Interpretive Statements Afib/flut and V-paced complexes Nonspecific ST and T wave abnormality Prolonged QT interval Baseline wander in lead(s) V1,V5,V6 Compared to ECG 01/06/2017 21:40:06 Intermittent ventricular pacing is now present Electronically Signed On 05-11-2017 8:33:10 CDT by Nick Davenport [email or web address] <ELECTRONICALLY SIGNED> By: Nick Davenport MD, [facility] 05/11/17 0833 1151 1151 Nick Davenport MD, [facility] /EPI
--- NOTE | ~2017-05-10 | 2DMMODE ---
[facility] [address] [place] [address] 2 D/M-MODE ECHOCARDIOGRAM Name: KRISTIE CARDOZA Room #: 246-P [facility] IN ..#: [id number] Admission: 05/10/17 Attend Phys: Faustino Reyes MD Discharge: Date of : 42 Date of Service: 05/14/17 1612 Report #: [id number] THIS REPORT FOR: //name// APPROVED REPORT Study performed: 05/14/2017 10:30:12 EXAM: Comprehensive 2D, Doppler, and color-flow Echocardiogram Patient Location: ICU Room #: 246 Status: routine BSA: 2.16 HR: 101 bpm BP: 117/62 mmHg Rhythm: Atrial Fibrillation Other Information Study Quality: Good Indications COPD Diabetes Atrial Fibrillation Pacemaker Hypertension/HDD 2D Dimensions RVDd: 33.62 mm LVEF(%): 39.73 (>50%) IVSd: 10.99 (7-11mm) LVOT Diam: 21.18 (18-24mm) LVDd: 45.99 mm PWd: 11.43 (7-11mm) Ascending Ao: 34.47 (22-36mm) LVDs: 37.13 (25-40mm) Aortic Root: 33.65 mm IVC: 24.00 mm Manuel's LVEF: 39.73 % Volumes Left Atrial Volume (Systole) Single Plane 4CH: 72.14 mL Single Plane 2CH: 62.40 mL LA ESV Index: 35.00 mL/m2 Mitral Valve MV Decel. Time: 153.44 ms MV E Max Tyler.: 0.94 m/s IVRT: 103.81 ms [facility] [address] [place] [address] 2 D/M-MODE ECHOCARDIOGRAM Name: KRISTIE CARDOZA Room #: 246-P ADM IN [facility].#: [id number] Admission: 05/10/17 Attend Phys: Faustino Reyes MD Discharge: Date of : 42 Date of Service: 05/14/17 1612 Report #: [id number] Pulmonary Valve PV Peak Tyler.: 0.85 m/s PV Peak Gr.: 2.89 mmHg Tricuspid Valve TR Peak Tyler.: 2.67 m/s RAP Estimate: 10.00 mmHg TR Peak Gr.: 28.63 mmHg PA Pressure: 39.00 mmHg Left Ventricle The left ventricle is normal size. Paradoxical septal motion consistent with conduction abnormality. Mild concentric left ventricular hypertrophy. The left ventricular systolic function is lower limits of normal. LVEF is 50-55%. This study is not technically sufficient to allow evaluation of the LV diastolic function due to atrial fibrillation. Right Ventricle The right ventricle is normal size. The right ventricular systolic function is normal. Atria Left atrium is mildly dilated. Right atrium is dilated. Aortic Valve Aortic valve is calcified. No aortic regurgitation is present. There is no aortic valvular stenosis. Mitral Valve The mitral valve is normal in structure. Mild mitral regurgitation. No evidence of mitral valve stenosis. Tricuspid Valve The tricuspid valve is normal in structure. There is trace tricuspid regurgitation. The right atrial pressure is estimated at 10 mmHg. There is mild pulmonary hypertension. The RVSP is 35-40 mmHg. Pulmonic Valve The pulmonary valve is normal in structure. Trace pulmonic regurgitation. Great Vessels The aortic root is normal in size. IVC is dilated and collapses >50% with inspiration. Pericardium [facility] [address] [place] [address] 2 D/M-MODE ECHOCARDIOGRAM Name: KRISTIE CARDOZA Room #: 246-P [facility] IN .R.#: [id number] Admission: 05/10/17 Attend Phys: Faustino Reyes MD Discharge: Date of : 42 Date of Service: 05/14/17 1612 Report #: [id number] No pericardial effusion. <Conclusion> The left ventricle is normal size. Mild concentric left ventricular hypertrophy. The left ventricular systolic function is lower limits of normal. LVEF is 50-55%. This study is not technically sufficient to allow evaluation of the LV diastolic function due to atrial fibrillation. Paradoxical septal motion consistent with conduction abnormality. Left atrium is mildly dilated. Aortic valve is calcified. There is no aortic valvular stenosis. Mild mitral regurgitation. There is trace tricuspid regurgitation. The right atrial pressure is estimated at 10 mmHg. There is mild pulmonary hypertension. The RVSP is 35-40 mmHg. <ELECTRONICALLY SIGNED> By: Bro Carreno MD, FACC 05/14/171611 11 11 Bor Carreno MD, FACC /INF
--- NOTE | ~2017-05-10 | EKG ---
[address] [address] ELECTROCARDIOGRAM REPORT Name: KRISTIE CARDOZA Room #: 246-P ADM IN M.R.#: [id number] Admission: 05/10/17 Attend Phys: Faustino Reyes MD Discharge: Date of : 42 Report #: [id number] THIS REPORT FOR: //name// [facility] ED Test Date: 2017-05-10 Test Time: 11:36:11 Pat Name: KRISTIE CARDOZA Department: Room: 246 Gender: M Site Reliability Engineer: REG : 1940 Requested By: Sal Parrish Order Number: [id number] MD: Gael Bean Measurements Intervals [place] Rate: 121 P: ME: QRS: -4 QRSD: 94 T: 24 QT: 386 QTc: 548 Interpretive Statements Afib/flut with RVR Electronically Signed On 05-10-2017 16:50:56 CDT by Gael Bean [email or web address] <ELECTRONICALLY SIGNED> By: Gael Bean MD 05/10/17 1650 1136 1136 MD LUIS Bañuelos
[~2017-05-10 11:15] MED LIST changes: +BACTRIM DS TAB1 EACH PO; +CARDIZEM CD180 MG PO; +CASODEX 50 MG T50 M1 PO; +DIGOXIN250 MCG PO; +FREESTYLE LITE1 EACH MC; +GLUCOSAMINE HC500 MG PO; +HUMALOG100 UNIT/1 SUBQ; +IMDUR 30 MG TAB30 M1 PO; +KLOR-CON 1010 MEQ PO; +LEVOTHYROXINE 0.1 MG PO; +LYRICA 50 MG50 MG PO; +METOLAZONE 2.52.5 M1 PO; +METOPROLOL SUCC50 MG PO; +NAMENDA 10 MG T10 MG PO; +OXYCODONE HCL 55 MG PO; +PENTOXIFYLLINE400 MG PO; +PROSCAR 5MG TABL5 MG PO; +SIMVASTATIN20 MG PO; +TOPROL XL25 MG PO; +TOUJEO SOL300 UNIT/1 SQ; +UNICOMPLEX M TA1 TA1 PO
[2017-05-10 11:48] LABS: HEMATOCRIT 29.3 % (42.0-52.0); HEMOGLOBIN 9.6 gm/dL (14.0-18.0); MCH 31.4 pg (26.0-34.0); MCHC 32.7 g/dL (28.0-37.0); MCV 96.1 fL (80.0-100.0); PLATELET COUNT 118 thou/uL (150-400); RBC 3.05 mil/uL (4.50-6.00); RDW 22.4 % (10.5-14.5)
[2017-05-10 11:49] LABS: MANUAL DIFF YES
[2017-05-10 11:52] LABS: POC CA IONIZED 4.3 mg/dL (4.5-5.3); POC CREATININE 0.9 mg/dL (0.6-1.3); POC HEMOGLOBIN 9.5 g/dL (14.0-18.0); POC POTASSIUM 4.3 mmol/L (3.5-5.1)
[2017-05-10 11:57] LABS: CALCIUM 8.1 mg/dL (8.5-10.1); MAGNESIUM 1.9 mg/dL (1.8-2.4); POTASSIUM 4.3 mmol/L (3.5-5.1)
[2017-05-10 11:59] LABS: APTT 37.3 Seconds (24.5-32.8); PROTIME 27.8 Seconds (9.3-11.4)
[2017-05-10 12:05] LABS: INR 2.8
[2017-05-10 12:23] LABS: TOTAL CELL COUNT 100
[2017-05-10 12:24] LABS: ANISOCYTOSIS 1+; HYPOCHROMASIA 1+; PLATELET ESTIMATE NORMAL
[2017-05-10 12:31] LABS: ABSOLUTE NEUTROPHILS 1.5 thou/uL (1.4-8.2); WBC 1.7 thou/uL (4.0-11.0)
[2017-05-10 14:47] LABS: URINE BILIRUBIN NEGATIVE (Negative); URINE BLOOD TRACE (Negative); URINE COLOR YELLOW; URINE GLUCOSE-RANDOM* NEGATIVE (Negative); URINE KETONES NEGATIVE (Negative); URINE LEUKOCYTES-REFLEX NEGATIVE (Negative); URINE PROTEIN (DIPSTICK) NEGATIVE (Negative); URINE UROBILINOGEN 0.2 E.U./dl (0.2-1.0)
[2017-05-10] MEDS ORDERED: TYLENOL325 MG PO (15:14)
[2017-05-10] MEDS ORDERED: ARICEPT 5 MG TAB5 MG PO (15:14)
[2017-05-10] MEDS ORDERED: CYCLOPHOSPHAMID50 MG PO (15:15)
[2017-05-10] MEDS ORDERED: DEXAMETHASONE 44 M1 PO (15:16)
[2017-05-10] MEDS ORDERED: DILTIAZEM HCL90 MG PO (15:21)
[2017-05-10] MEDS ORDERED: COLACE100 MG PO (15:22)
[2017-05-10] MEDS ORDERED: LORADAMED10 MG PO (15:23)
[2017-05-10] MEDS ORDERED: LYRICA100 MG PO (15:23)
[2017-05-10] MEDS ORDERED: OXYCONTIN10 M1 PO (15:24)
[2017-05-10 16:43] LABS: HEMATOCRIT 27.3 % (42.0-52.0); HEMOGLOBIN 9.1 gm/dL (14.0-18.0); MCH 32.3 pg (26.0-34.0); MCHC 33.2 g/dL (28.0-37.0); MCV 97.5 fL (80.0-100.0); PLATELET COUNT 109 thou/uL (150-400)
[2017-05-10 16:49] LABS: CALCIUM 7.3 mg/dL (8.5-10.1); CREATININE 0.8 mg/dL (0.7-1.3); POTASSIUM 3.6 mmol/L (3.5-5.1)
[2017-05-10 16:50] LABS: ABG SAMPLE TYPE ARTERIAL; BE(vivo) -4.7 mmol/L (-2 to +3); HCO3 19.4 mmol/L (22.0-26.0); LACTATE 1.08 mmol/L (0.5-2.0); O2Hb 91.6 % (92.0-98.0); PCO2 32.1 mmHg (35.0-45.0); PO2 75.4 mmHg (80.0-100.0); STICK SITE R.RADIAL; pH 7.399 (7.360-7.450); sO2 95.3 % (92.0-98.0); tCO2 20.4 mmol/L (24.0-30.0)
[2017-05-10 16:52] LABS: MANUAL DIFF YES; WBC 1.5 thou/uL (4.0-11.0)
[2017-05-10 16:54] LABS: TOTAL BILIRUBIN 0.4 mg/dL (<0.1-1.0); TOTAL PROTEIN 5.1 g/dL (6.4-8.2)
[2017-05-10 17:29] LABS: ABSOLUTE NEUTROPHILS 1.1 thou/uL (1.4-8.2); TOTAL CELL COUNT 100
[2017-05-10 17:30] LABS: ANISOCYTOSIS 2+
[2017-05-10 21:13] LABS: CALCIUM 6.6 mg/dL (8.5-10.1); CREATININE 0.8 mg/dL (0.7-1.3); POTASSIUM 3.2 mmol/L (3.5-5.1)
[2017-05-11] VITALS (45 sets, daily range): BP systolic 84–156; BP diastolic 52–89
[2017-05-11 05:20] LABS: HEMATOCRIT 28.8 % (42.0-52.0); HEMOGLOBIN 9.3 gm/dL (14.0-18.0); MCH 31.9 pg (26.0-34.0); MCHC 32.3 g/dL (28.0-37.0); MCV 98.9 fL (80.0-100.0); PLATELET COUNT 108 thou/uL (150-400); RBC 2.92 mil/uL (4.50-6.00); RDW 22.8 % (10.5-14.5)
[2017-05-11 05:23] LABS: CALCIUM 7.7 mg/dL (8.5-10.1); CREATININE 0.7 mg/dL (0.7-1.3)
[2017-05-11 05:28] LABS: MANUAL DIFF YES; POTASSIUM 4.6 mmol/L (3.5-5.1)
[2017-05-11 07:44] LABS: ABSOLUTE NEUTROPHILS 0.8 thou/uL (1.4-8.2); TOTAL CELL COUNT 50
[2017-05-11 07:45] LABS: ANISOCYTOSIS 1+; OVALOCYTES FEW; POLYCHROMASIA OCCASIONAL
[2017-05-12] VITALS (47 sets, daily range): BP systolic 74–129; BP diastolic 48–91
[2017-05-12 05:38] LABS: HEMATOCRIT 28.2 % (42.0-52.0); HEMOGLOBIN 8.9 gm/dL (14.0-18.0); MCH 31.3 pg (26.0-34.0); MCHC 31.7 g/dL (28.0-37.0); MCV 98.6 fL (80.0-100.0); RBC 2.86 mil/uL (4.50-6.00); RDW 22.8 % (10.5-14.5)
[2017-05-12 05:41] LABS: WBC 1.3 thou/uL (4.0-11.0)
[2017-05-12 05:46] LABS: CALCIUM 7.9 mg/dL (8.5-10.1); CREATININE 0.6 mg/dL (0.7-1.3); POTASSIUM 4.1 mmol/L (3.5-5.1)
[2017-05-13] VITALS (42 sets, daily range): BP systolic 78–131; BP diastolic 55–95
[2017-05-13 04:52] LABS: HEMATOCRIT 29.9 % (42.0-52.0); HEMOGLOBIN 9.7 gm/dL (14.0-18.0); MCHC 32.5 g/dL (28.0-37.0); MCV 98.6 fL (80.0-100.0); PLATELET COUNT 94 thou/uL (150-400); RBC 3.03 mil/uL (4.50-6.00); RDW 23.2 % (10.5-14.5); WBC 3.5 thou/uL (4.0-11.0)
[2017-05-13 05:04] LABS: CALCIUM 8.3 mg/dL (8.5-10.1); CREATININE 0.5 mg/dL (0.7-1.3); POTASSIUM 4.2 mmol/L (3.5-5.1)
[2017-05-13 05:23] LABS: ABG SAMPLE TYPE ARTERIAL; BE(vivo) -3.7 mmol/L (-2 to +3); HCO3 20.3 mmol/L (22.0-26.0); O2(CT) 12.4 mL/dL (15.0-23.0); O2Hb 90.5 % (92.0-98.0); PCO2 32.9 mmHg (35.0-45.0); STICK SITE R.RADIAL; pH 7.409 (7.360-7.450); sO2 92.9 % (92.0-98.0); tCO2 21.3 mmol/L (24.0-30.0)
[2017-05-13 05:24] LABS: Pressure Support 8 cm H20
[2017-05-13 07:58] LABS: MANUAL DIFF YES
[2017-05-13 08:23] LABS: ABSOLUTE NEUTROPHILS 2.7 thou/uL (1.4-8.2); METAMYELOCYTES 1 %; TOTAL CELL COUNT 100
[2017-05-13 08:24] LABS: ANISOCYTOSIS 3+
[2017-05-13 22:11] LABS: INFLUENZA B Negative (Negative); METAPNEUMOVIRUS Negative (Negative)
[2017-05-14] VITALS (33 sets, daily range): BP systolic 84–144; BP diastolic 45–102
[2017-05-14 05:30] LABS: HEMOGLOBIN 9.6 gm/dL (14.0-18.0); MCH 31.5 pg (26.0-34.0); MCHC 32.1 g/dL (28.0-37.0); MCV 98.3 fL (80.0-100.0); PLATELET COUNT 99 thou/uL (150-400); RBC 3.05 mil/uL (4.50-6.00); RDW 23.2 % (10.5-14.5); WBC 4.8 thou/uL (4.0-11.0)
[2017-05-14 05:36] LABS: CALCIUM 7.9 mg/dL (8.5-10.1); CREATININE 0.7 mg/dL (0.7-1.3); POTASSIUM 3.8 mmol/L (3.5-5.1)
[2017-05-14 05:38] LABS: MANUAL DIFF YES
[2017-05-14 08:35] LABS: ABSOLUTE NEUTROPHILS 3.6 thou/uL (1.4-8.2); METAMYELOCYTES 1 %; NUCLEATED RBCS 1 /100WBC; PLATELET ESTIMATE SLIGHTLY DECREASED; TOTAL CELL COUNT 100
[2017-05-14 08:36] LABS: ANISOCYTOSIS 1+; HYPOCHROMASIA 1+; POLYCHROMASIA 2+
[2017-05-14 10:03] LABS: PROTIME 196.1 Seconds (9.3-11.4)
[2017-05-14 10:11] LABS: INR > 15.0
[2017-05-14 10:18] LABS: ABG SAMPLE TYPE ARTERIAL; BE(vivo) 1.5 mmol/L (-2 to +3); HCO3 25.6 mmol/L (22.0-26.0); O2(CT) 13.2 mL/dL (15.0-23.0); PCO2 38.5 mmHg (35.0-45.0); PO2 64.9 mmHg (80.0-100.0); pH 7.441 (7.360-7.450); sO2 93.5 % (92.0-98.0); tCO2 26.8 mmol/L (24.0-30.0)
[2017-05-14 10:19] LABS: Pressure Support 8 cm H20; STICK SITE R.RADIAL
[2017-05-15] VITALS (23 sets, daily range): BP systolic 93–139; BP diastolic 45–99
[2017-05-15 02:44] LABS: HEMATOCRIT 31.8 % (42.0-52.0); HEMOGLOBIN 10.2 gm/dL (14.0-18.0); MCH 30.9 pg (26.0-34.0); MCV 96.5 fL (80.0-100.0); PLATELET COUNT 107 thou/uL (150-400); RBC 3.29 mil/uL (4.50-6.00); RDW 23.2 % (10.5-14.5); WBC 5.1 thou/uL (4.0-11.0)
[2017-05-15 02:51] LABS: MANUAL DIFF YES
[2017-05-15 02:52] LABS: CREATININE 0.8 mg/dL (0.7-1.3); POTASSIUM 3.6 mmol/L (3.5-5.1)
[2017-05-15 02:53] LABS: PROTIME 23.6 Seconds (9.3-11.4)
[2017-05-15 02:56] LABS: INR 2.3
[2017-05-15 03:49] LABS: ABSOLUTE NEUTROPHILS 4.5 thou/uL (1.4-8.2); METAMYELOCYTES 1 %; NUCLEATED RBCS 5 /100WBC; TOTAL CELL COUNT 100
[2017-05-15 03:50] LABS: ANISOCYTOSIS 3+; LARGE PLATELETS OCCASIONAL; MACROCYTES 1+; MICROCYTES 2+; POLYCHROMASIA OCCASIONAL
[2017-05-16] VITALS (21 sets, daily range): BP systolic 99–132; BP diastolic 45–68
[2017-05-16 05:51] LABS: HEMATOCRIT 30.1 % (42.0-52.0); HEMOGLOBIN 9.9 gm/dL (14.0-18.0); MCH 31.8 pg (26.0-34.0); MCV 96.3 fL (80.0-100.0); PLATELET COUNT 113 thou/uL (150-400); RBC 3.13 mil/uL (4.50-6.00); RDW 23.6 % (10.5-14.5); WBC 5.5 thou/uL (4.0-11.0)
[2017-05-16 05:53] LABS: MANUAL DIFF YES
[2017-05-16 06:08] LABS: CALCIUM 8.2 mg/dL (8.5-10.1); CREATININE 0.7 mg/dL (0.7-1.3); POTASSIUM 3.5 mmol/L (3.5-5.1)
[2017-05-16 08:50] LABS: ABSOLUTE NEUTROPHILS 4.5 thou/uL (1.4-8.2); ANISOCYTOSIS 2+; METAMYELOCYTES 1 %; OVALOCYTES 1+; POLYCHROMASIA OCCASIONAL; TOTAL CELL COUNT 100
[2017-05-16 18:44] LABS: INR 1.4; PROTIME 14.2 Seconds (9.3-11.4)
[2017-05-17] VITALS (18 sets, daily range): BP systolic 100–130; BP diastolic 46–70
[2017-05-17 05:35] LABS: HEMATOCRIT 30.4 % (42.0-52.0); HEMOGLOBIN 9.8 gm/dL (14.0-18.0); MCH 31.1 pg (26.0-34.0); MCHC 32.2 g/dL (28.0-37.0); MCV 96.5 fL (80.0-100.0); PLATELET COUNT 97 thou/uL (150-400); RBC 3.15 mil/uL (4.50-6.00); RDW 23.3 % (10.5-14.5); WBC 4.5 thou/uL (4.0-11.0)
[2017-05-17 05:40] LABS: MANUAL DIFF YES
[2017-05-17 05:45] LABS: CALCIUM 8.1 mg/dL (8.5-10.1); CREATININE 0.6 mg/dL (0.7-1.3); INR 1.5; POTASSIUM 3.5 mmol/L (3.5-5.1); PROTIME 14.9 Seconds (9.3-11.4)
[2017-05-17 08:24] LABS: ABSOLUTE NEUTROPHILS 3.6 thou/uL (1.4-8.2); ANISOCYTOSIS 3+; ATYPICAL LYMPHS 1 %; METAMYELOCYTES 3 %; MYELOCYTES 2 %; TOTAL CELL COUNT 100
[2017-05-17 08:25] LABS: POLYCHROMASIA OCCASIONAL
[2017-05-18 04:41] LABS: HEMATOCRIT 31.4 % (42.0-52.0); HEMOGLOBIN 10.4 gm/dL (14.0-18.0); MCH 31.7 pg (26.0-34.0); MCHC 33.1 g/dL (28.0-37.0); MCV 95.8 fL (80.0-100.0); RBC 3.28 mil/uL (4.50-6.00); RDW 22.7 % (10.5-14.5); WBC 6.4 thou/uL (4.0-11.0)
[2017-05-18 05:11] LABS: CALCIUM 7.9 mg/dL (8.5-10.1); CREATININE 0.7 mg/dL (0.7-1.3); POTASSIUM 3.9 mmol/L (3.5-5.1)
[2017-05-18 07:00] VITALS: BP 127/68
[2017-05-18 08:00] VITALS: BP 126/59
[2017-05-18 09:00] VITALS: BP 118/59
[2017-05-18 10:00] VITALS: BP 111/60
[2017-05-18 11:00] VITALS: BP 101/60
[2017-05-19 04:12] VITALS: BP 113/62
[2017-05-19 06:49] LABS: HEMATOCRIT 28.5 % (42.0-52.0); HEMOGLOBIN 9.4 gm/dL (14.0-18.0); MCH 31.8 pg (26.0-34.0); MCHC 33.1 g/dL (28.0-37.0); MCV 96.3 fL (80.0-100.0); RBC 2.96 mil/uL (4.50-6.00); RDW 22.8 % (10.5-14.5); WBC 5.4 thou/uL (4.0-11.0)
[2017-05-19 07:00] LABS: CALCIUM 8.1 mg/dL (8.5-10.1); CREATININE 0.7 mg/dL (0.7-1.3)
[2017-05-19 07:05] LABS: INR 1.4; PROTIME 14.7 Seconds (9.3-11.4)
[2017-05-19 08:29] VITALS: BP 131/66
[2017-05-19 12:27] VITALS: BP 112/59
[2017-05-19 16:07] VITALS: BP 104/53
[2017-05-19 20:32] VITALS: BP 108/54
[2017-05-20 03:40] VITALS: BP 124/72
[2017-05-20 06:28] LABS: INR 1.3; PROTIME 13.1 Seconds (9.3-11.4)
[2017-05-20 10:05] VITALS: BP 109/56
[2017-05-20] MEDS ORDERED: LEVAQUIN 750 M750 MG PO (11:42)
[2017-05-20] MEDS ORDERED: CARDIZEM60 MG PO (13:28)
[2017-05-20] MEDS ORDERED: LANOXIN 0.250.25 MG PO (13:28)
[2017-05-20] MEDS ORDERED: LASIX 40 MG TAB40 MG PO (13:29)
[2017-05-20] MEDS ORDERED: NEURONTIN600 MG PO (13:29)
[2017-05-20] MEDS ORDERED: PREDNISONE 10 M10 MG PO (13:33)
== END 2017-05-20 17:55 | DRG 871 ==
LOC: ER 11:15 → EROBS 14:13 → ICU 14:13 → 4W 05-18 12:22
PROVIDERS: Emergency Medicine; Hospitalist; Internal Medicine; Internal Medicine Cardiovascular Disease; Internal Medicine Hematology & Oncology; Internal Medicine Pulmonary Disease; Specialist
DX: A41.9 Sepsis, unspecified organism (principal); J18.9 Pneumonia, unspecified organism; R65.21 Severe sepsis with septic shock; I50.43 Acute on chronic combined systolic (congestive) and diastolic (congestive) heart failure; E43 Unspecified severe protein-calorie malnutrition; J96.01 Acute respiratory failure with hypoxia; D61.818 Other pancytopenia; E87.0 Hyperosmolality and hypernatremia; E78.5 Hyperlipidemia, unspecified; Z66 Do not resuscitate; E11.9 Type 2 diabetes mellitus without complications; I11.0 Hypertensive heart disease with heart failure; I25.10 Atherosclerotic heart disease of native coronary artery without angina pectoris; G47.33 Obstructive sleep apnea (adult) (pediatric); J44.9 Chronic obstructive pulmonary disease, unspecified; E03.9 Hypothyroidism, unspecified; I48.2 Chronic atrial fibrillation; Y95 Nosocomial condition; I49.5 Sick sinus syndrome; Z95.5 Presence of coronary angioplasty implant and graft; Z68.33 Body mass index [BMI] 33.0-33.9, adult; Z95.0 Presence of cardiac pacemaker; Z85.79 Personal history of other malignant neoplasms of lymphoid, hematopoietic and related tissues; Z87.891 Personal history of nicotine dependence; Z86.718 Personal history of other venous thrombosis and embolism; Z92.21 Personal history of antineoplastic chemotherapy; Z79.4 Long term (current) use of insulin; Z79.01 Long term (current) use of anticoagulants; Z79.82 Long term (current) use of aspirin; Z79.899 Other long term (current) drug therapy; Z92.3 Personal history of irradiation; Z88.5 Allergy status to narcotic agent; Z88.8 Allergy status to other drugs, medicaments and biological substances
CPT/HCPCS: 10045; 10078; 27000